=== PATIENT | female | born 1960 | race African-American/Black ===

== ENCOUNTER 2020-06-26 08:00 | Emergency (ER) | payer OTHER ==
[~2020-06-26] VITALS: Ht 167.6 cm; Wt 59.0 kg
[2020-06-26] MEDS: SODIUM CHLORIDE 0.9% 1,000 ML IV ONE (09:01)
[2020-06-26 09:26] LABS: CLARITY URINE CLEAR (CLEAR); COLOR URINE YELLOW (YELLOW); KETONES URINE NEGATIVE (NEGATIVE); LEUKOCYTE ESTERASE URINE NEGATIVE (NEGATIVE); NITRITE URINE NEGATIVE (NEGATIVE); OCCULT BLOOD URINE NEGATIVE (NEGATIVE); PH URINE 5.5 (4.5-8.0); PROTEIN URINE NEGATIVE (NEGATIVE); SPECIFIC GRAVITY URINE 1.009 (1.005-1.030); UROBILINOGEN URINE 0.2 E.U./dL (0.2-1.0)
[2020-06-26 09:29] LABS: BASOPHILS % 1.2 % (0.0-2.0); EOSINOPHILS % 1.5 % (0.0-5.0); HEMATOCRIT. 38.4 % (36.0-48.0); HEMOGLOBIN. 12.8 g/dL (12.0-16.0); LYMPHOCYTES % 16.8 % (20.0-50.0); MEAN CORPUSCULAR HEMOGLOBIN 29.5 pg (28.0-32.0); MEAN CORPUSCULAR VOLUME 88.5 fL (81.0-99.0); MEAN PLATELET VOLUME 9.7 fl (7.4-10.4); MONOCYTES % 8.8 % (2.0-8.0); NEUTROPHILS % 71.7 % (40.0-76.0); PLATELET 276 x1000/uL (130-400); RED BLOOD CELL COUNT 4.33 mill/uL (4.2-5.4)
[2020-06-26 09:31] LABS: CHLORIDE 108 mEq/L (98-107)
[2020-06-26 09:35] LABS: ETHANOL BLOOD < 10 mg/dL
[2020-06-26 09:38] LABS: *AMPHETAMINES SCREEN URINE NEGATIVE (NEGATIVE); *BARBITURATES SCREEN URINE NEGATIVE (NEGATIVE); *BENZODIAZEPINES SCREEN URINE NEGATIVE (NEGATIVE)
[2020-06-26 09:39] LABS: *COCAINE SCREEN URINE PRESUMTIVE POSITIVE (NEGATIVE); CANNABINOID URINE SCREEN NEGATIVE (NEGATIVE); METHADONE URINE SCREEN NEGATIVE (NEGATIVE); OPIATES URINE SCREEN NEGATIVE (NEGATIVE); PHENCYCLIDINE URINE SCREEN PRESUMTIVE POSITIVE (NEGATIVE)
[2020-06-26] MEDS: HALOPERIDOL LACTATE 5MG/ML VIAL IM ONE (09:45)
[2020-06-26] MEDS: LORAZEPAM 2MG/ML CPJ IV ONE (09:45)
[2020-06-26] MEDS: POTASSIUM CHLORIDE 20MEQ TABLET SR PO ONE ×2 (12:15→18:17)
[2020-06-27 06:18] VITALS: BP 120/82
== END 2020-06-27 06:21 | disposition home or self-care (01) ==
LOC: ER 08:41
DX: E87.6 Hypokalemia (principal); F19.10 Other psychoactive substance abuse, uncomplicated; Z88.0 Allergy status to penicillin; Z98.890 Other specified postprocedural states
CPT/HCPCS: 36415; 80053; 80305; 80307; 80320; 80329; 81003; 85025; 93005; 96361; 96372; 96374; 99285; J1630; J2060; J7030; G0480

== ENCOUNTER 2024-07-20 15:47 | Emergency (ER) | payer MEDICARE, MEDICAID ==
[~2024-07-20] VITALS: Ht 165.1 cm; Wt 60.0 kg
[2024-07-20 15:53] VITALS: BP 145/85; PULSE 115; RESP 18; O2SAT 98
== END 2024-07-20 18:38 | disposition left against medical advice (07) ==
LOC: ER 15:47
DX: L02.91 Cutaneous abscess, unspecified (principal); Z53.21 Procedure and treatment not carried out due to patient leaving prior to being seen by health care provider